=== PATIENT | male | born 1980 | race Caucasian/White ===

== ENCOUNTER 2020-08-16 10:54 | Emergency (ER) | payer BC, SELFPAY ==
[2020-08-16 10:55] VITALS: BP 145/94; PULSE 84; RESP 18; TEMP 36.7; O2SAT 93; BMI 41.7
--- NOTE | 2020-08-16 11:20 | RAD_ITS ---
We are attempting to reach an attending provider to discuss findings. An addendum with communication details will be sent when the communication is complete. STUDY: X-RAY - LUMBAR SPINE REASON FOR EXAM: Male, 40 years old. fell about 6 feet off a ladder, most pain in lower back -- No previous injury TECHNIQUE: 3 view(s) of the lumbar spine were obtained. COMPARISON: None FINDINGS: Normal lumbar lordosis. There is no substantial scoliosis. There is a normal alignment of the vertebrae. There is acute anterior superior endplate compression fracture of L1 with approximately 10% vertebral body height loss and sharp margin of the vertebral body seen anteriorly. There is also fracture of L2 with approximately 10% vertebral body height loss. Though I do not see evidence of posterior superior retropulsion of the vertebral bodies or definitive posterior element fracture, recommend further evaluation with CT. Normal disc space heights. Small marginal osteophytes are present at L3-L4 and I suspect mild posterior facet arthropathy of the lower lumbar spine. There is nondisplaced fracture of the medial aspect of the left 12th rib. The soft tissue structures are unremarkable. RAD/Lumbar Spine 2 or 3 Views IMPRESSION: Acute superior endplate compression deformities of L1 and L2 as well as acute fracture of the posterior medial left 12th rib. Although I do not see evident retropulsion of the vertebral bodies or malalignment, recommend CT exam to further evaluate and better assess the fracture and posterior elements. Electronically Signed: Rubi Barraza MD at 12:17 EST , Service support ,
--- NOTE | 2020-08-16 11:20 | RAD_ITS ---
STUDY: X-RAY - THORACIC SPINE REASON FOR EXAM: Male, 40 years old. fell about 6 feet off a ladder, most pain in lower back -- No previous injury TECHNIQUE: 3 view(s) of the thoracic spine were obtained. 5 images COMPARISON: X-ray lumbar spine same date FINDINGS: Normal kyphosis of the thoracic spine. There is no substantial scoliosis. Normal thoracic vertebrae and endplates. Normal disc space heights. There is fracture of the superior endplate of L1 which is better seen on the lumbar spine study and there is also fracture of the medial aspect of the T12 rib on the left also better seen on the lumbar spine study. The soft tissue structures are unremarkable. RAD/Thoracic Spine 2 Views IMPRESSION: There is fracture of the superior endplate of L1 which is better seen on the lumbar spine study and there is also fracture of the medial aspect of the T12 rib on the left also better seen on the lumbar spine study. Otherwise unremarkable appearance of the remainder of the thoracic vertebral bodies as seen on plain film examination. Electronically Signed: Rubi Barraza MD at 12:21 EST , Service support ,
--- NOTE | 2020-08-16 11:22 | ED.VIS.FALL ---
History of Present Illness Chief Complaint: Fall Informant: Patient Occurred: Today - [place] Mechanism/Context: - - accidentally fell from ladder while painting his house Fall from Height (ft): 6 Usually ambulates: Without assistance Location: right low back Quality of Pain: Aching Current Severity: Mild Maximum Severity: Severe Worsened by: moving or trying to stand Relieved by: remaining still Associated Symptoms: Inability to ambulate. Negative for: Parasthesias, Weakness, Loss of function, Loss of consciousness, Amnesia Narrative: Healthy 40-year-old who fell off of a ladder. He landed on his right low back. He denies any other injury or numbness or weakness in his lower extremities, bowel or bladder incontinence, saddle anesthesia. He did not hit his head or lose consciousness. Past Medical History - Allergies and Home Meds Allergies/Adverse Reactions: Allergies No Known Allergies Allergy (Verified 08/16/20 10:59) Past Medical History: None Smoking Status: Never smoker Review of Systems General: Denies: Chills, Fever, Sweats Eyes: Denies: Visual changes - bilaterally, Diplopia ENT: Denies: Rhinorrhea, Sore throat Cardiovascular: Denies: Chest pain, Palpitations Respiratory: Denies: Dyspnea, Cough, Dyspnea on exertion Gastrointestinal: Denies: Abdominal pain, Nausea, Vomiting, Diarrhea, Melena, Hematochezia Genitourinary: Denies: Dysuria, Hematuria, Frequency Musculoskeletal: Reports: Back pain. Denies: Neck pain, Extremity Pain Skin: Denies: Rash, Wounds Neurological: Denies: Headache, Weakness, Numbness Physical Exam Vital Signs/Narrative: Vital Signs Temp Pulse Resp BP Pulse Ox 08/16/20 10:55 98.0 F 84 18 145/94 H 93 Inital Vital Signs reviewed: Yes General: Well nourished, Well developed, - - Well-appearing no acute distress. GCS 15. Head: Normocephalic, Atraumatic Eyes: Perrl, EOMI ENT: TM's clear, No hemotympanum or drainage, No trauma Neck: Nontender, Full ROM Cardiovascular: Regular rate, Regular rhythm, No murmurs Respiratory: No distress, CTA bilaterally, Chest nontender Abdomen: Soft, Nontender, Nondistended, Normal bowel sounds Back: Spinal Tenderness - Mild, lower thoracic/upper lumbar. No step-off or obvious signs of trauma., Paraspinal Tenderness - Most tenderness is paraspinal to the right, from approximately L1-L4 area Extremeties: Full range of motion throughout all joints of all 4 extremities without pain or limitation. Skin: Normal color, No rash Neurological: Alert, Oriented x3, Cranial nerves II-XII grossly intact, Normal Strength, Normal Sensation, Normal DTR Psychological: Normal affect, Normal Mood Diagnostic/Tx/Re-eval Impressions Lumbar Spine X-Ray 08/16/20 11:20 IMPRESSION: Acute superior endplate compression deformities of L1 and L2 as well as acute fracture of the posterior medial left 12th rib. Although I do not see evident retropulsion of the vertebral bodies or malalignment, recommend CT exam to further evaluate and better assess the fracture and posterior elements. Electronically Signed: Rubi Barraza MD at 12:17 EST , Service support , ADDENDUM: 08/16/20 1303 IMPRESSION: Acute superior endplate compression deformities of L1 and L2 as well as acute fracture of the posterior medial left 12th rib. Although I do not see evident retropulsion of the vertebral bodies or malalignment, recommend CT exam to further evaluate and better assess the fracture and posterior elements. N.B. : Moriah Long RN, confirmed on 08/16/2020 12:56:04 (ET) that the referring physician received the results and does not require a verbal communication. Electronically Signed: Rubi Barraza MD at 12:17 EST , Service support , Thoracic Spine X-Ray 08/16/20 11:20 IMPRESSION: There is fracture of the superior endplate of L1 which is better seen on the lumbar spine study and there is also fracture of the medial aspect of the T12 rib on the left also better seen on the lumbar spine study. Otherwise unremarkable appearance of the remainder of the thoracic vertebral bodies as seen on plain film examination. Electronically Signed: Rubi Barraza MD at 12:21 EST , Service support , Lumbar Spine CT 08/16/20 12:26 IMPRESSION: 1. Acute compression fractures of anterior superior L1 and L2 without canal involvement. 2. 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 Electronically Signed: Leobardo Sainz, at 14:12 EST Tel , Service support , Abdomen/Pelvis CT 08/16/20 12:56 IMPRESSION: 1. No abdominal organ injury.. 2. Normal urinary system. 3. L1 and L2 acute compression fractures. Electronically Signed: Leobardo Sainz, at 14:18 EST Tel , Service support , 08/16/20 11:20 Lumbar Spine 2 or 3 Views [RAD] Stat Thoracic Spine 2 Views [RAD] Stat 08/16/20 12:26 CT Spine [Spine Lumbar without Contrast] [CT] Stat 08/16/20 12:56 CT Abd [Abdomen/Pelvis W IV Cont ONLY] [CT] Stat Laboratory Results 08/16/20 08/16/20 08/16/20 12:10 13:15 13:15 WBC 14.2 H RBC 5.28 Hgb 14.9 Hct 44.4 MCV 84.1 MCH 28.2 MCHC 33.6 RDW Std Deviation 39.5 RDW Coeff of Nadir 12.8 Plt Count 231 MPV 9.3 Immature Gran % (Auto) 0.700 Neut % (Auto) 85.8 H Lymph % (Auto) 8.1 L [place] % (Auto) 5.1 Eos % (Auto) 0.1 Baso % (Auto) 0.2 Absolute Neuts (auto) 12.2 H Absolute Lymphs (auto) 1.15 Nucleated RBC % 0 Sodium 134 L Potassium 3.8 Chloride 103 Carbon Dioxide 26.0 Anion Gap 5 BUN 14 Creatinine 1.06 Estim Creat Clear Calc 112.59 Est GFR (MDRD) Af Amer 99 Est GFR (MDRD) Non-Af 82 BUN/Creatinine Ratio 13.2 Glucose 94 Calcium 8.3 L Urine Color Yellow Urine Clarity Sl. Cloudy Urine pH 5.0 Ur Specific [place] 1.020 Urine Protein Negative Urine Glucose (UA) Normal Urine Ketones Negative Urine Occult Blood 10 H Urine Nitrite Negative Urine Bilirubin Negative Urine Urobilinogen Normal Ur Leukocyte Esterase Negative Urine RBC 0-5 SEEN Urine WBC 0 SEEN Ur Squamous Epith Cells 0-5 SEEN Urine Bacteria RARE Hyaline Casts 0-5 SEEN Urine Mucus 1+ - Medical Decision Making Screening x-rays were initially obtained of the thoracic and the lumbar spine, showing acute fractures of L1 and L2, recommending CT for further evaluation, which was done. Since his urinalysis showed a very trace amount of microscopic hematuria, I had CT open up the window to include the kidneys and screen them. She said that one of them look suspicious, so we obtained a formal CT of the abdomen/pelvis with IV contrast only. It shows no intra-abdominal or retroperitoneal organ injury. With regards to his spinal fractures, I discussed with orthopedics Dr. Cervantes who got me in touch of their back/payroll and benefits specialist Dr. Patterson. Was able to review the imaging, and recommended discharging the patient with restrictions to be seen as an outpatient tomorrow in their office. We do not have back braces here to provide the patient prior to discharge, hence the restrictions. Patient is comfortable with those plans, and is able to walk/stand. He is neurologically intact without symptoms or objective findings. He will be given a prescription for pain medications as well. ED Disposition - Plan for ED Patient: Disposition: Home or Assisted Living Diagnosis: Closed fracture of lumbar vertebra, Fall from ladder Instructions: Back Fracture (Compression Fracture) Prescriptions: Hydrocodone Bitart/Apap 5-325 [[place] 5MG-325MG] 1 tablet PO Q4H PRN PRN 3 Days #18 tablet PRN Reason: Pain Transmission Status: Sent to [id number] Referrals: Walt Patterson DO [STAFF PHYSICIAN] - 08/17/20 (call in AM for appt time tomorrow afternoon) Additional Instructions: No bending, twisting, lifting more than 5 pounds.
[2020-08-16] MEDS: cycloBENZAPRine HCl 10 MG Tablet PO (11:47)
[2020-08-16] MEDS: traMADol 50 MG Tablet PO (11:47)
[2020-08-16 12:13] LABS: White Blood Cells 0 SEEN /hpf (0-5)
[2020-08-16 12:17] LABS: Color, Urine Yellow (Yellow); Glucose, Dipstick Normal (Normal); Ketone-Dipstick Negative (Negative); Leukocyte Esterase-Dipstick Negative /ul (Negative); Nitrite-Dipstick Negative (Negative); Occult Blood-Urine 10 /ul (Negative); Protein-Dipstick Negative (Negative); Urine Bilirubin Dipstick Negative (Negative); Urine Clarity Sl. Cloudy (Clear); Urine Urobilinogen Normal (Normal)
[2020-08-16 12:25] LABS: Bacteria RARE /hpf (None Seen); Hyaline Cast 0-5 SEEN /lpf (0-5); Mucous, Urine 1+ /hpf (<or=2+); Red Blood Cells-Urine 0-5 SEEN /hpf (0-5); Squamous Epithelial Cells - UA 0-5 SEEN /hpf (0-5)
--- NOTE | 2020-08-16 12:26 | CT_ITS ---
STUDY: CT LUMBAR SPINE WITHOUT CONTRAST REASON FOR EXAM: Male, 40 years old. Fall 6'', low back pain after injury RADIATION DOSAGE (If Supplied By Facility): CTDIvol = ( 47.77 ) mGy, DLP = ( 1567.40 ) mGycm TECHNIQUE: CT of the lumbar spine was performed without contrast. Sagittal and coronal images were reconstructed. Individualized dose optimization techniques were used for this CT. COMPARISON: None FINDINGS: Examination is technically limited due to patient''s large body habitus. Diagnostic information is available. Osseous structures are assessable. Canal contents are poorly seen. Lumbar spine is aligned. There are fragmentation compression fractures of superior endplates and anterior superior corners of L1 and L2 with approximately 25% loss of height. Middle column is intact and there is no posterior cortical retropulsion. Posterior column is intact. Remainder of the vertebral bodies are intact. Canal is congenitally stenotic with diffuse multilevel mild to moderate thecal sac stenosis. SI joints are normal. Mineralization and paraspinous soft tissues are normal. CT/Spine Lumbar without Contrast IMPRESSION: 1. Acute compression fractures of anterior superior L1 and L2 without canal involvement. 2. 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 Electronically Signed: Leobardo Sainz, at 14:12 EST Tel , Service support ,
--- NOTE | 2020-08-16 12:56 | CT_ITS ---
STUDY: CT ABDOMEN AND PELVIS WITH AND WITHOUT CONTRAST REASON FOR EXAM: Male, 40 years old. Fall trauma abdominal pain and hematuria RADIATION DOSAGE (If Supplied By Facility): CTDIvol = ( 32.13 ) mGy, DLP = ( 4682.43 ) mGycm TECHNIQUE: Transaxial images were obtained from the dome of the diaphragm to the symphysis pubis without oral contrast. IV 100mL Isovue-370 was administered. Sagittal and coronal images were reconstructed. Individualized dose optimization techniques were used for this CT. COMPARISON: None. FINDINGS: The visualized lung bases are unremarkable. The visualized portions of the heart are within normal limits. Normal liver with a benign cyst in segment 5.. Normal gallbladder and extrahepatic biliary system. Normal spleen. Normal pancreas. Normal bilateral adrenal glands. Normal right kidney. Normal left kidney. Normal visualized stomach. Normal small intestine. Normal colon. The appendix is visualized and appears normal. Normal abdominal aorta. Normal inferior vena cava. Normal retroperitoneum. Normal urinary bladder. There is a left inguinal fat hernia. Normal abdominal wall. There are acute compression fractures of L1 and L2. Lumbar spine is aligned. Pelvis is intact. CT/Abdomen/Pelvis W IV Cont ONLY IMPRESSION: 1. No abdominal organ injury.. 2. Normal urinary system. 3. L1 and L2 acute compression fractures. Electronically Signed: Leobardo Sainz, at 14:18 EST Tel , Service support ,
[2020-08-16 13:00] VITALS: BP 134/75; PULSE 79; RESP 18; O2SAT 98
[2020-08-16] MEDS: 0.9% Normal Saline 1,000 ML 999 ML IV (13:18)
[2020-08-16 13:21] LABS: Absolute Lymphocyte Count 1.15 X10^3/uL (0.83-4.51); Absolute Neutrophil Count 12.2 X10^3/uL (2.0-7.7); Basophil# 0.03 X10^3/uL; Basophil% 0.2 % (0-1); Eosinophil# 0.02 X10^3/uL; Eosinophils% 0.1 % (0-5); Hematocrit 44.4 % (40-54); Hemoglobin 14.9 g/dL (13.0-16.5); Lymphocyte # 1.15 X10^3/ul (4.0); Lymphocyte % 8.1 % (19-41); Mean Corp Hgb Conc 33.6 g/dL (32-36); Mean Corpuscular Hgb 28.2 pg (27.0-32.0); Mean Corpuscular Volume 84.1 fL (80-94); Mean Platelet Vol. 9.3 fl (6.2-12.0); Monocyte# 0.72 X10^3/uL; Monocyte% 5.1 % (0-10); NRBC Flagged by Analyzer 0 % (0-5); Neutrophil % 85.8 % (47-70); Platelet Count 231 K/mm3 (150-450); RBC Distribution Width CV 12.8 % (11.6-14.6); RBC Distribution Width SD 39.5 fl (35.1-43.9); Red Blood Count 5.28 M/mm3 (4.6-6.2); White Blood Count 14.2 K/mm3 (4.4-11.0)
[2020-08-16 13:33] LABS: Anion Gap 5 (5-15); BUN 14 mg/dL (7-18); BUN/Creat Ratio 13.2 RATIO (10-20); Calcium,Total 8.3 mg/dL (8.5-10.1); Chloride 103 mmol/L (98-107); Creatinine, Serum 1.06 mg/dL (0.70-1.30); EST Glomerular Filtration Rate 82 mL/min (>60); Est Glom Filt Rate - Afr Amer 99 mL/min (>60); Estimated Creatinine Clearance 112.59 ml/min; Glucose 94 mg/dL (74-106); Potassium 3.8 mmol/L (3.5-5.1); Sodium Level 134 mmol/L (136-145)
[2020-08-16 14:00] VITALS: BP 132/53; PULSE 81; RESP 18; O2SAT 97
[2020-08-16 15:00] VITALS: BP 133/74; PULSE 80; RESP 18; O2SAT 98
[2020-08-16] MEDS: Ondansetron 4 MG/2 ML Vial IV (15:51)
[2020-08-16] MEDS: Morphine 4 MG/ML Syringe IV (15:51)
[2020-08-16 16:00] VITALS: BP 138/79; PULSE 81; RESP 18; O2SAT 98
[2020-08-16 16:47] VITALS: BP 134/69; PULSE 81; RESP 18; O2SAT 98
== END 2020-08-16 16:47 | disposition home or self-care (01) ==
PROVIDERS: Emergency Provider Emergency Medicine
DX: S32.019A Unspecified fracture of first lumbar vertebra, initial encounter for closed fracture (principal); S32.029A Unspecified fracture of second lumbar vertebra, initial encounter for closed fracture; W11.XXXA Fall on and from ladder, initial encounter; Y92.009 Unspecified place in unspecified non-institutional (private) residence as the place of occurrence of the external cause; Y99.9 Unspecified external cause status; M48.061 Spinal stenosis, lumbar region without neurogenic claudication; R31.29 Other microscopic hematuria
CPT/HCPCS: 72070; 72100; 72131; 74177; 80048; 81001; 85025; 96361; 96374; 96375; 99285; J7030; Q9967; A4216; J2405